=== PATIENT | male | born 1990 | race African-American/Black ===

== ENCOUNTER 2018-03-11 19:52 | Emergency (ER) | payer SELFPAY ==
[~2018-03-11] VITALS: Ht 175.3 cm; Wt 81.6 kg
[2018-03-11 19:59] VITALS: BP 145/89
--- NOTE | 2018-03-11 20:04 | NUR ---
TO LOBBY A/W BED, VSS STABLE
--- NOTE | 2018-03-11 20:34 | NUR ---
PT AMBULATED TO BED 06.
--- NOTE | 2018-03-11 20:45 | NUR ---
28/M CAME IN ED, C/O DARK RED BLOOD IN STOOL, X2 DAYS. PT REPORTS FEELING CONSTIPATED. PT DENIES N/V OR DYSURIA. PT REPORTS SUBJECTIVE FEVER AND DIAPHORESIS AND CHILLS AT NIGHT. PT REPORTS 8/10 BL LOWER ABD PAIN. LUNG SOUNDS CLEAR BL. BS ACTIVE X4, ABD SOFT ROUND NONTENDER. AOX4, AMBULATORY, RR EVEN AND UNLABORED. DENIES MED HX, RX.
[2018-03-11 20:53] LABS: BASOPHILS % (AUTO) 0.4 % (0.0-2.0); EOSINOPHILS # (AUTO) 0.1 K/uL (0-0.4); EOSINOPHILS % (AUTO) 0.6 % (0.0-4.0); HEMATOCRIT 45.9 % (36-52); HEMOGLOBIN 15.5 g/dL (12.0-18.0); LYMPHOCYTES # (AUTO) 2.3 K/uL (2.0-11.5); LYMPHOCYTES % (AUTO) 20.9 % (20.5-51.1); MEAN CORPUSCULAR HEMOGLOBIN 31 pg (27-31); MEAN CORPUSCULAR HGB CONC 34 g/dL (33-37); MONOCYTES % (AUTO) 9.3 % (1.7-9.3); NEUTROPHILS # (AUTO) 7.5 K/uL (1.8-7.7); NEUTROPHILS % (AUTO) 68.8 % (42.2-75.2); PLATELET COUNT (AUTO) 276 K/uL (140-450); RED CELL DISTRIBUTION WIDTH 14.7 % (11.6-13.7); WHITE BLOOD COUNT (AUTO) 10.9 K/uL (4.8-10.8)
[2018-03-11 21:12] LABS: ANION GAP 7.8 (8-16); CARBON DIOXIDE 33.1 mmol/L (21-32); CREATININE 1.1 mg/dL (0.7-1.3); POTASSIUM 3.9 mmol/L (3.5-5.1)
[2018-03-11 21:18] LABS: ALBUMIN 3.5 g/dL (3.4-5.0); TOTAL BILIRUBIN 0.2 mg/dL (0.0-1.0)
[2018-03-11 21:34] LABS: BLOOD, URINE TRACE (NEGATIVE); COLOR,URINE YELLOW (YELLOW); UGLUCOSE NEGATIVE (NEGATIVE)
[2018-03-11 21:35] LABS: BILIRUBIN,URINE NEGATIVE (NEGATIVE); LEUKOCYTE ESTERASE ,URINE 1+ (NEGATIVE); NITRITE, URINE NEGATIVE (NEGATIVE)
[2018-03-11 21:36] LABS: APPEARANCE,URINE SLIGHTLY CLOUDY (CLEAR)
[2018-03-11 21:46] LABS: RBC,URINE 3-10 (FEW) /HPF (0-5)
[2018-03-11 21:47] LABS: WBC,URINE 20-60 /HPF (0-5)
--- NOTE | 2018-03-11 22:12 | NUR ---
PT RESTING IN BED, VSS, PT REPORTS 6/10 ABD PAIN, RR EVEN AND UNLABORED. ALL NEEDS MET.
--- NOTE | 2018-03-11 23:16 | NUR ---
PT MADE AWARE THAT HE NEEDS TO STAY INSIDE THE ROOM, PATIENT FOUND OUTSIDE ROOM TALKING LOUDLY ABOUT HOW HE NEEDS TO SEE THE DOCTOR
--- NOTE | 2018-03-11 23:22 | NUR ---
ER AT BEDSIDE
[2018-03-11] MEDS ORDERED: DOXYCYCLINE 100 MG CAP PO STA (23:28)
[2018-03-11] MEDS ORDERED: cefTRIAXone 250 MG in LIDOCAINE MPF 1% - 5 mL VIAL 0.9 ML IM ONE (23:30)
[2018-03-11] MEDS ORDERED: cefTRIAXone 250 MG VIAL ONE (23:40)
[2018-03-11] MEDS ORDERED: LIDOCAINE 1% 50 ML ONE (23:43)
[2018-03-12 00:06] VITALS: BP 129/84
== END 2018-03-12 00:03 | disposition home or self-care (01) ==
LOC: MED 19:52
DX: K59.00 Constipation, unspecified (principal); K62.5 Hemorrhage of anus and rectum; N34.2 Other urethritis; F17.210 Nicotine dependence, cigarettes, uncomplicated
CPT/HCPCS: 36415; 80053; 81001; 85025; 87086; 99284; J0696; J2001